=== PATIENT | male | born 1950 | race Caucasian/White ===

== ENCOUNTER 2024-02-29 18:00 | Inpatient (IN) | payer MEDICARE, OTHER ==
[~2024-02-29] VITALS: Ht 165.1 cm; Wt 72.6 kg
[2024-02-29 18:31] LABS: BASOPHILS % (AUTO) 0.1 % (0.0-2.0); HEMATOCRIT 36 % (39-51); HEMOGLOBIN 12.1 g/dL (13.5-17.5); LYMPHOCYTES # (AUTO) 2.5 K/uL (0.8-4.8); MEAN CORPUSCULAR HEMOGLOBIN 32 PG (26.0-33.0); MEAN CORPUSCULAR HGB CONC 34 g/dl (31.0-36.0); MEAN CORPUSCULAR VOLUME 94 fL (80-96); MONOCYTES # (AUTO) 1.4 K/uL (0.1-1.30); MONOCYTES % (AUTO) 6.3 % (2.0-12.0); NEUTROPHILS # (AUTO) 18.9 K/uL (1.8-8.9); NEUTROPHILS % (AUTO) 82.6 % (43.0-81.0); PLATELET COUNT (AUTO) 274 K/uL (150-450); RED BLOOD CELL COUNT(AUTO) 3.78 MIL/uL (4.5-6.0); WHITE BLOOD COUNT (AUTO) 22.9 K/uL (4.3-11.0)
[2024-02-29 18:39] LABS: CALCIUM, SERUM 9.1 mg/dL (8.5-10.1); CARBON DIOXIDE 26 mmol/L (21-32); CHLORIDE 98 mmol/L (98-107); CREATININE 1.3 mg/dL (0.6-1.3); GLUCOSE 116 mg/dL (74-106); POTASSIUM 5.3 mmol/L (3.5-5.1); SODIUM SERUM 130 mmol/L (136-145); UREA NITROGEN, BLOOD 18 mg/dL (7-18)
[2024-02-29] MEDS ORDERED: ACET-868 PO (18:40)
[2024-02-29] MEDS ORDERED: CHOL4PAC2 PO (18:40)
[2024-02-29] MEDS ORDERED: NA P133E RC (18:40)
[2024-02-29] MEDS ORDERED: TACR1CAP2 PO (18:40)
[2024-02-29] MEDS ORDERED: MAGN400O6 PO (18:40)
[2024-02-29] MEDS ORDERED: BISA10SU11 RC (18:40)
[2024-02-29] MEDS ORDERED: TRAM50TA2 PO (18:40)
[2024-02-29] MEDS ORDERED: INSU100V28 SQ (18:40)
[2024-02-29] MEDS ORDERED: TAMS-12 PO (18:40)
[2024-02-29] MEDS ORDERED: ASCO-352 PO (18:40)
[2024-02-29] MEDS ORDERED: MULT-447 PO (18:40)
[2024-02-29] MEDS ORDERED: FOLI0.4T6 PO (18:40)
[2024-02-29] MEDS ORDERED: TRAZ-182 PO (18:40)
[2024-02-29] MEDS ORDERED: INSULIN GLARGINE-YF SQ (18:40)
[2024-02-29] MEDS ORDERED: MELA5TAB PO (18:40)
[2024-02-29] MEDS ORDERED: DEXT15DR6 EACHEYE (18:40)
[2024-02-29] MEDS ORDERED: NUT.237L71 PO (18:40)
[2024-02-29] MEDS ORDERED: SODI100037 PO (18:40)
[2024-02-29] MEDS ORDERED: PRED5TAB PO (18:40)
[2024-02-29] MEDS ORDERED: FINA5TAB11 PO (18:40)
[2024-02-29] MEDS ORDERED: BENA10TA74 PO (18:40)
[2024-02-29] MEDS ORDERED: GABA-532 PO (18:40)
[2024-02-29] MEDS ORDERED: HYDR-4076 PO (18:40)
[2024-02-29 18:46] LABS: ALANINE AMINOTRANSFERASE 17 U/L (12-78); ALBUMIN 3.2 g/dL (3.4-5.0); ALKALINE PHOSPHATASE 90 U/L (46-116); ASPARTATE AMINOTRANSFERASE 15 U/L (15-37); BILIRUBIN,DIRECT 0.2 mg/dL (0.0-0.2); BILIRUBIN,TOTAL 0.5 mg/dL (0.2-1.0); TOTAL PROTEIN, SERUM 7.9 g/dL (6.4-8.2)
[2024-02-29 18:47] LABS: ACETAMINOPHEN <10 ug/ml (10-30); SALICYLATE 0.9 mg/dL (2.8-20.0)
[2024-02-29 18:48] LABS: ALCOHOL, BLOOD < 3 mg/dL (0-10)
[2024-02-29] MEDS ORDERED: ACETAMINOPHEN 650 MG/SUPP.RECT RC ONE (18:48)
[2024-02-29 18:51] LABS: LACTIC ACID 0.9 mmol/L (0.4-2.0)
[2024-02-29] MEDS: ACETAMINOPHEN 650 MG/SUPP.RECT RC ONE (18:51)
[2024-02-29 18:56] LABS: INR 1.24 (0.91-1.10); PARTIAL THROMBOPLASTIN TIME 33.4 SEC (24.3-34.3)
[2024-02-29] MEDS: CEFEPIME 1 GM in IV D5W 50 ML IV ONE (19:30)
[2024-02-29 19:58] LABS: APPEARANCE,URINE CLOUDY (CLEAR); BILIRUBIN,URINE 1+ (NEGATIVE); BLOOD, URINE 3+ Ery/uL (NEGATIVE); COLOR,URINE DARK YELLOW (YELLOW); KETONES,URINE TRACE mg/dL (NEGATIVE); LEUKOCYTE ESTERASE ,URINE 2+ (NEGATIVE); NITRITE, URINE NEGATIVE (NEGATIVE); PH,URINE 5.5 (5.0-8.0); PROTEIN,URINE 2+ mg/dl (NEGATIVE); UGLUCOSE NEGATIVE (NEGATIVE); UROBILINOGEN,URINE 0.2 EU/dL (0.2)
[2024-02-29] MEDS: VANCOMYCIN 1 GM in IV D5W 250 ML IV ONE (20:00)
[2024-02-29] MEDS: IV NS 0.9% 500 ML BAG IV ONE (20:07)
[2024-02-29 20:13] LABS: ADD URINE CULTURE YES; BACTERIA,URINE Moderate /HPF (None Seen); RBC,URINE TOO NUMEROUS TO COUN /HPF (0-2); WBC,URINE TOO NUMEROUS TO COUN /HPF (0-3)
[2024-02-29 20:14] LABS: SQUAMOUS EPITHELIAL CELL,UR Rare /HPF (None Seen)
[2024-02-29] MEDS ORDERED: ONDANSETRON HCL/PF 4 MG/2 ML VIAL IVP PRN (21:30)
[2024-02-29] MEDS: IV NS 0.9% 1,000 ML BAG IV ONE (21:30)
[2024-02-29] MEDS ORDERED: MAG HYDROX/AL HYDROX/SIMETH 30 ML UDC PO PRN (21:30)
[2024-02-29] MEDS ORDERED: ACETAMINOPHEN 650 MG/SUPP.RECT RC PRN (21:30)
[2024-02-29] MEDS ORDERED: MAGNESIUM HYDROXIDE 30 ML UDC PO PRN (21:30)
[2024-02-29] MEDS ORDERED: Medication Not On Formulary EA (Melatonin 10 MG) PO PRN (22:00)
[2024-02-29] MEDS ORDERED: DEXTROSE 50%-WATER 50 ML DISP.SYRIN IV PRN (22:00)
[2024-02-29] MEDS: INSULIN GLARGINE, 100 UNIT/ML CARTRIDGE SQ SCH (22:00)
[2024-02-29] MEDS ORDERED: TRAMADOL HCL 50 MG TABLET PO PRN (22:00)
[2024-02-29] MEDS ORDERED: Calcium Gluconate 0.465 MEQ/ML VIAL IV ONE (22:44)
[2024-02-29] MEDS ORDERED: INSULIN REGULAR, HUMAN 100 UNIT/ML 10 ML VIAL ONE (22:46)
[2024-02-29] MEDS: Calcium Gluconate 0.465 MEQ/ML VIAL IV ONE (22:56)
[2024-02-29] MEDS: DEXTROSE 50%-WATER 50 ML DISP.SYRIN IVP ONE (22:59)
[2024-02-29] MEDS: INSULIN REGULAR, HUMAN 100 UNIT/ML 3 ML VIAL IV ONE (22:59)
[2024-02-29] MEDS: ENOXAPARIN SODIUM 40 MG/0.4 ML DISP.SYRIN SQ SCH (23:15)
[2024-02-29] MEDS: TAMSULOSIN 0.4 MG CAP.SR.24H PO SCH (23:53)
[2024-02-29] MEDS: BLOOD SUGAR DIAGNOSTIC 1 EACH STRIP IN SCH (23:54)
[2024-02-29] MEDS: TRAZODONE 50 MG TABLET PO SCH (23:54)
[2024-03-01] VITALS: BP 134/62; TEMP 99; O2SAT 98
[2024-03-01] MEDS ORDERED: INSULIN GLARGINE, 100 UNIT/ML CARTRIDGE SQ ONE ×2 (00:39→00:41)
[2024-03-01] MEDS: ACETAMINOPHEN 325 MG TABLET PO PRN (02:33)
[2024-03-01 04:00] VITALS: BP 116/55; TEMP 98.2; O2SAT 96
[2024-03-01] MEDS: IV NS 0.9% 1,000 ML IV PRN (04:59)
[2024-03-01 08:00] VITALS: BP 145/60; TEMP 100.4; O2SAT 97
[2024-03-01 08:04] LABS: ALANINE AMINOTRANSFERASE 12 U/L (12-78); ALBUMIN 2.7 g/dL (3.4-5.0); ALKALINE PHOSPHATASE 76 U/L (46-116); ASPARTATE AMINOTRANSFERASE 17 U/L (15-37); BILIRUBIN,DIRECT 0.2 mg/dL (0.0-0.2); BILIRUBIN,TOTAL 0.6 mg/dL (0.2-1.0); CALCIUM, SERUM 8.8 mg/dL (8.5-10.1); CARBON DIOXIDE 20 mmol/L (21-32); CHLORIDE 99 mmol/L (98-107); CREATININE 1.4 mg/dL (0.6-1.3); GLUCOSE 114 mg/dL (74-106); MAGNESIUM 1.6 mg/dL (1.8-2.4); PHOSPHORUS 2.9 mg/dL (2.5-4.9); POTASSIUM 4.7 mmol/L (3.5-5.1); SODIUM SERUM 129 mmol/L (136-145); TOTAL PROTEIN, SERUM 7.1 g/dL (6.4-8.2); UREA NITROGEN, BLOOD 22 mg/dL (7-18)
[2024-03-01 08:18] LABS: BASOPHILS % (AUTO) 0.1 % (0.0-2.0); HEMATOCRIT 34 % (39-51); HEMOGLOBIN 11.4 g/dL (13.5-17.5); LYMPHOCYTES # (AUTO) 1.7 K/uL (0.8-4.8); LYMPHOCYTES % (AUTO) 7.2 % (20.0-44.0); MEAN CORPUSCULAR HEMOGLOBIN 32 PG (26.0-33.0); MEAN CORPUSCULAR HGB CONC 34 g/dl (31.0-36.0); MEAN CORPUSCULAR VOLUME 95 fL (80-96); MONOCYTES # (AUTO) 1.3 K/uL (0.1-1.30); MONOCYTES % (AUTO) 5.5 % (2.0-12.0); NEUTROPHILS # (AUTO) 21.1 K/uL (1.8-8.9); NEUTROPHILS % (AUTO) 87.2 % (43.0-81.0); PLATELET COUNT (AUTO) 244 K/uL (150-450); WHITE BLOOD COUNT (AUTO) 24.2 K/uL (4.3-11.0)
[2024-03-01] MEDS ORDERED: BENAZEPRIL HCL 10 MG TABLET PO SCH (09:00)
[2024-03-01] MEDS ORDERED: FIBER PO SCH (09:00)
[2024-03-01] MEDS ORDERED: CHOLESTYRAMINE PO SCH (09:00)
[2024-03-01] MEDS ORDERED: NUT TX GLUC INTOL LF SOY PO SCH (09:00)
[2024-03-01] MEDS ORDERED: SUCROSE PO SCH (09:00)
[2024-03-01] MEDS ORDERED: [UNRECOGNIZED DRUG - OTHER] PO SCH (09:00)
[2024-03-01] MEDS: CEFEPIME 1 GM in IV D5W 50 ML IV SCH (09:23)
[2024-03-01] MEDS: PANTOPRAZOLE 40 MG VIAL IV SCH (10:12)
[2024-03-01] MEDS: ASCORBIC ACID 500 MG TABLET PO SCH (10:13)
[2024-03-01] MEDS: predniSONE 5 MG TABLET PO SCH (10:13)
[2024-03-01] MEDS: GABAPENTIN 100 MG CAPSULE PO SCH (10:13)
[2024-03-01] MEDS: MULTIVITAMINS,THERAGRAN 1 UDTAB TABLET PO SCH (10:13)
[2024-03-01] MEDS: FOLIC ACID 1 MG TABLET PO SCH (10:13)
[2024-03-01] MEDS: TACROLIMUS ANHYDROUS 0.5 MG CAPSULE PO SCH (10:13)
[2024-03-01] MEDS: FINASTERIDE (5 MG) 5 MG TABLET PO SCH (10:14)
[2024-03-01] MEDS: POLYVINYL ALCOHOL 15 ML BOTTLE EACHEYE PRN (10:14)
[2024-03-01] MEDS: SODIUM CHLORIDE 1000 MG TABLET PO SCH (10:14)
[2024-03-01] MEDS: Z GUARD REMEDY 4 OZ OINT TP PRN (10:15)
[2024-03-01] MEDS: hydrALAZINE HCL 25 MG TABLET PO SCH (10:16)
[2024-03-01] MEDS: MAGNESIUM OXIDE 400 MG TABLET PO ONE (10:17)
[2024-03-01 12:00] VITALS: BP 117/54; O2SAT 97
[2024-03-01] MEDS: INSULIN REGULAR, HUMAN 100 UNIT/ML 3 ML VIAL SQ PRN (12:52)
[2024-03-01 16:00] VITALS: BP 107/55; TEMP 97.5; O2SAT 97
[2024-03-01 16:10] LABS: HEMATOCRIT 32 % (39-51); HEMOGLOBIN 10.8 g/dL (13.5-17.5); LYMPHOCYTES # (AUTO) 1.6 K/uL (0.8-4.8); LYMPHOCYTES % (AUTO) 7.7 % (20.0-44.0); MEAN CORPUSCULAR HEMOGLOBIN 32 PG (26.0-33.0); MEAN CORPUSCULAR HGB CONC 34 g/dl (31.0-36.0); MEAN CORPUSCULAR VOLUME 95 fL (80-96); MONOCYTES # (AUTO) 0.9 K/uL (0.1-1.30); MONOCYTES % (AUTO) 4.3 % (2.0-12.0); NEUTROPHILS # (AUTO) 18.3 K/uL (1.8-8.9); PLATELET COUNT (AUTO) 223 K/uL (150-450); RED BLOOD CELL COUNT(AUTO) 3.34 MIL/uL (4.5-6.0); RED CELL DISTRIBUTION WIDTH 14.7 % (11.5-15.0); WHITE BLOOD COUNT (AUTO) 20.8 K/uL (4.3-11.0)
[2024-03-01 16:22] LABS: INR 1.43 (0.91-1.10); PARTIAL THROMBOPLASTIN TIME 39.9 SEC (24.3-34.3); PROTHROMBIN TIME 14.8 SECS (9.2-11.1)
[2024-03-01 16:24] LABS: CALCIUM, SERUM 8.5 mg/dL (8.5-10.1); CARBON DIOXIDE 22 mmol/L (21-32); CHLORIDE 98 mmol/L (98-107); CREATININE 1.5 mg/dL (0.6-1.3); GLUCOSE 220 mg/dL (74-106); POTASSIUM 4.8 mmol/L (3.5-5.1); SODIUM SERUM 127 mmol/L (136-145); UREA NITROGEN, BLOOD 26 mg/dL (7-18)
[2024-03-01 20:00] VITALS: BP 95/57; TEMP 97.8; O2SAT 98
[2024-03-02] VITALS: BP 152/63; TEMP 97.9; O2SAT 96
[2024-03-02 04:58] VITALS: BP 131/58; TEMP 98.1; O2SAT 96
[2024-03-02 07:00] VITALS: BP 113/65; TEMP 98.1; O2SAT 98
[2024-03-02 16:00] VITALS: BP 149/72; TEMP 98.2; O2SAT 98
[2024-03-02 20:00] VITALS: BP 136/66; TEMP 98.4; O2SAT 100
[2024-03-03] VITALS: BP_SYST 137; BP_SYST 157; BP_DIAS 71; TEMP 98.2; O2SAT 100; O2SAT 98
[2024-03-03 04:00] VITALS: BP 157/71; TEMP 97.7; O2SAT 100
[2024-03-03 07:00] VITALS: BP 160/69; TEMP 97.5; O2SAT 100
[2024-03-03] MEDS: PANTOPRAZOLE 40 MG TABLET.DR PO SCH (08:48)
[2024-03-03] MEDS: hydrALAZINE HCL 25 MG TABLET PO SCH (08:52)
[2024-03-03 09:30] VITALS: BP 140/73; O2SAT 100
[2024-03-03] MEDS: POLYETHYLENE GLYCOL 3350 17 GM POWD.PACK PO ONE ×2 (10:30→19:17)
[2024-03-03 11:02] LABS: BASOPHILS % (AUTO) 0.2 % (0.0-2.0); EOSINOPHILS % (AUTO) 0.6 % (0.0-6.0); HEMATOCRIT 33 % (39-51); HEMOGLOBIN 10.8 g/dL (13.5-17.5); LYMPHOCYTES # (AUTO) 1.8 K/uL (0.8-4.8); MEAN CORPUSCULAR HEMOGLOBIN 32 PG (26.0-33.0); MEAN CORPUSCULAR HGB CONC 33 g/dl (31.0-36.0); MEAN CORPUSCULAR VOLUME 95 fL (80-96); MONOCYTES # (AUTO) 0.5 K/uL (0.1-1.30); NEUTROPHILS # (AUTO) 6.1 K/uL (1.8-8.9); NEUTROPHILS % (AUTO) 72.2 % (43.0-81.0); PLATELET COUNT (AUTO) 187 K/uL (150-450); RED BLOOD CELL COUNT(AUTO) 3.41 MIL/uL (4.5-6.0); RED CELL DISTRIBUTION WIDTH 14.5 % (11.5-15.0); WHITE BLOOD COUNT (AUTO) 8.5 K/uL (4.3-11.0)
[2024-03-03 11:54] LABS: CALCIUM, SERUM 8.3 mg/dL (8.5-10.1); MAGNESIUM 1.6 mg/dL (1.8-2.4); PHOSPHORUS 1.7 mg/dL (2.5-4.9); POTASSIUM 4.7 mmol/L (3.5-5.1)
[2024-03-03] MEDS: MAGNESIUM OXIDE 400 MG TABLET PO ONE (13:05)
[2024-03-03 16:00] VITALS: BP 153/72; TEMP 97.7; O2SAT 98
[2024-03-03] MEDS: K PHOS NEUTRAL 250 MG TABLET PO ONE (17:54)
[2024-03-03 20:00] VITALS: BP 90/65; TEMP 97.7; O2SAT 98
[2024-03-04] VITALS: BP 141/64; TEMP 97.7; O2SAT 100
[2024-03-04 04:00] VITALS: BP 105/65; TEMP 97.5; O2SAT 100
[2024-03-04 08:00] VITALS: BP 120/61; TEMP 97.7; O2SAT 100
[2024-03-04] MEDS: GLUCERNA SHAKE 237 ML CAN PO SCH (08:34)
[2024-03-04] MEDS: PROSOURCE / PROSTAT (PYXIS) 30 ML UDC PO SCH (09:09)
[2024-03-04 10:26] LABS: CREATININE 0.8 mg/dL (0.6-1.3); MAGNESIUM 1.8 mg/dL (1.8-2.4); PHOSPHORUS 2.1 mg/dL (2.5-4.9); POTASSIUM 5.4 mmol/L (3.5-5.1)
[2024-03-04] MEDS ORDERED: BISACODYL SUPP (10 MG) 10 MG/SUPP.RECT SUPP.RECT RC PRN (10:30)
[2024-03-04] MEDS: POLYETHYLENE GLYCOL 3350 17 GM POWD.PACK PO ONE (10:48)
[2024-03-04 12:00] VITALS: BP 98/70; TEMP 97.7; O2SAT 98
[2024-03-04 16:00] VITALS: BP 123/40; TEMP 97.6
[2024-03-04] MEDS: K PHOS NEUTRAL 250 MG TABLET PO ONE (17:01)
[2024-03-04 20:00] VITALS: BP 106/62; TEMP 97.7; O2SAT 98
[2024-03-04 22:42] LABS: URINE SODIUM, RANDOM 95 mmol/l (40-220)
[2024-03-04] MEDS ORDERED: DOXYCYCLINE 100 MG VIAL ONE (22:57)
[2024-03-04] MEDS: DOXYCYCLINE 100 MG in IV D5W 100 ML IV SCH (23:12)
[2024-03-05] VITALS: BP 121/61; TEMP 97.3; O2SAT 100
[2024-03-05 04:00] VITALS: BP 144/55; TEMP 97.7; O2SAT 100
[2024-03-05 08:17] VITALS: BP 128/60; TEMP 97.5; O2SAT 99
[2024-03-05 09:58] LABS: BASOPHILS % (AUTO) 0.2 % (0.0-2.0); EOSINOPHILS # (AUTO) 0.1 K/uL (0.0-0.7); HEMATOCRIT 34 % (39-51); HEMOGLOBIN 11.3 g/dL (13.5-17.5); LYMPHOCYTES # (AUTO) 1.6 K/uL (0.8-4.8); LYMPHOCYTES % (AUTO) 27.2 % (20.0-44.0); MEAN CORPUSCULAR HEMOGLOBIN 32 PG (26.0-33.0); MEAN CORPUSCULAR HGB CONC 34 g/dl (31.0-36.0); MEAN CORPUSCULAR VOLUME 95 fL (80-96); MONOCYTES # (AUTO) 0.4 K/uL (0.1-1.30); MONOCYTES % (AUTO) 6.7 % (2.0-12.0); NEUTROPHILS # (AUTO) 3.9 K/uL (1.8-8.9); NEUTROPHILS % (AUTO) 64.9 % (43.0-81.0); PLATELET COUNT (AUTO) 182 K/uL (150-450); RED BLOOD CELL COUNT(AUTO) 3.54 MIL/uL (4.5-6.0); RED CELL DISTRIBUTION WIDTH 13.9 % (11.5-15.0); WHITE BLOOD COUNT (AUTO) 6.1 K/uL (4.3-11.0)
[2024-03-05 10:20] LABS: CALCIUM, SERUM 8.3 mg/dL (8.5-10.1); CREATININE 0.9 mg/dL (0.6-1.3); POTASSIUM 5.3 mmol/L (3.5-5.1)
[2024-03-05] MEDS: SODIUM ZIRCONIUM CYCLOSILICATE 10 GM POWD.PACK PO SCH (12:15)
[2024-03-05 16:19] VITALS: BP 125/60; TEMP 98.2; O2SAT 97
[2024-03-05 18:43] LABS: OSMOLALITY,URINE 404 mOS/kg (340-1090)
[2024-03-05 20:00] VITALS: BP 127/66; TEMP 98.2; O2SAT 98
[2024-03-05] MEDS: INSULIN GLARGINE, 100 UNIT/ML CARTRIDGE SQ SCH (22:42)
[2024-03-06 08:00] VITALS: BP 133/57; TEMP 97.7; O2SAT 100
[2024-03-06 09:09] LABS: CALCIUM, SERUM 8.2 mg/dL (8.5-10.1); CREATININE 0.8 mg/dL (0.6-1.3)
[2024-03-06 16:00] VITALS: BP 121/69; TEMP 97.7; O2SAT 99
[2024-03-06 17:00] VITALS: BP 121/69
== END 2024-03-06 18:29 | DRG 698 ==
LOC: ER 18:08 → TELE 21:37 → MED 03-05 12:12
PROVIDERS: ADMIT Nurse Practitioner Family; ATTEND Internal Medicine
DX: T83.511A Infection and inflammatory reaction due to indwelling urethral catheter, initial encounter (principal); A41.9 Sepsis, unspecified organism; G93.41 Metabolic encephalopathy; R65.20 Severe sepsis without septic shock; D68.59 Other primary thrombophilia; E87.1 Hypo-osmolality and hyponatremia; E46 Unspecified protein-calorie malnutrition; N17.9 Acute kidney failure, unspecified; T86.12 Kidney transplant failure; Y73.8 Miscellaneous gastroenterology and urology devices associated with adverse incidents, not elsewhere classified; Y84.6 Urinary catheterization as the cause of abnormal reaction of the patient, or of later complication, without mention of misadventure at the time of the procedure; N39.0 Urinary tract infection, site not specified; E88.09 Other disorders of plasma-protein metabolism, not elsewhere classified; Y83.0 Surgical operation with transplant of whole organ as the cause of abnormal reaction of the patient, or of later complication, without mention of misadventure at the time of the procedure; N18.9 Chronic kidney disease, unspecified; E11.40 Type 2 diabetes mellitus with diabetic neuropathy, unspecified; Z79.60 Long term (current) use of unspecified immunomodulators and immunosuppressants; E87.5 Hyperkalemia; Z79.4 Long term (current) use of insulin; D63.1 Anemia in chronic kidney disease; Y83.8 Other surgical procedures as the cause of abnormal reaction of the patient, or of later complication, without mention of misadventure at the time of the procedure; I12.9 Hypertensive chronic kidney disease with stage 1 through stage 4 chronic kidney disease, or unspecified chronic kidney disease; E11.22 Type 2 diabetes mellitus with diabetic chronic kidney disease; N40.1 Benign prostatic hyperplasia with lower urinary tract symptoms; L89.626 Pressure-induced deep tissue damage of left heel; L89.616 Pressure-induced deep tissue damage of right heel; Z89.422 Acquired absence of other left toe(s); Z89.421 Acquired absence of other right toe(s); B96.89 Other specified bacterial agents as the cause of diseases classified elsewhere; E11.65 Type 2 diabetes mellitus with hyperglycemia; S00.12XA Contusion of left eyelid and periocular area, initial encounter; X58.XXXA Exposure to other specified factors, initial encounter; Y93.9 Activity, unspecified; Y92.129 Unspecified place in nursing home as the place of occurrence of the external cause
CPT/HCPCS: 36415; 70450-TC; 70486-TC; 71045-TC; 76770-TC; 80048-TC; 80076-TC; 81001; 82140-TC; 82962-TC; 83605-TC; 83735-TC; 83935-TC; 84100-TC; 84300-TC; 84443-TC; 84484-TC; 85025-TC; 85730-TC; 86850-TC; 87040-TC; 87081-TC; 87086-TC; 93307-TC; 93971-TC; 97110-TC; 97116-TC; 97530-TC; A4223; A6253; G0378; G0480; J0612; J0692; J1650; J1815; J2470; J3370; J3490; J7030; J7060; J7507; J7512

== ENCOUNTER 2024-03-25 01:27 | Inpatient (IN) | payer MEDICARE, OTHER ==
[~2024-03-25] VITALS: Ht 172.7 cm; Wt 77.6 kg
[~2024-03-25 01:27] MED LIST: ACET-868 PO; ASCO-352 PO; BENA10TA74 PO; BISA10SU11 RC; CHOL4PAC2 PO; DEXT15DR6 EACHEYE; FINA5TAB11 PO; FOLI0.4T6 PO; GABA-532 PO; HYDR-4076 PO; INSU100V28 SQ; INSULIN GLARGINE-YF SQ; MAGN400O6 PO; MELA5TAB PO; MULT-447 PO; NA P133E RC; NUT.237L71 PO; PRED5TAB PO; SODI100037 PO; TACR1CAP2 PO; TAMS-12 PO; TRAM50TA2 PO; TRAZ-182 PO
[2024-03-25 02:26] LABS: BASOPHILS % (AUTO) 0.3 % (0.0-2.0); HEMATOCRIT 36 % (39-51); HEMOGLOBIN 12.4 g/dL (13.5-17.5); LYMPHOCYTES # (AUTO) 1.1 K/uL (0.8-4.8); LYMPHOCYTES % (AUTO) 7.7 % (20.0-44.0); MEAN CORPUSCULAR HEMOGLOBIN 32 PG (26.0-33.0); MEAN CORPUSCULAR HGB CONC 35 g/dl (31.0-36.0); MEAN CORPUSCULAR VOLUME 93 fL (80-96); MONOCYTES # (AUTO) 0.9 K/uL (0.1-1.30); MONOCYTES % (AUTO) 6.7 % (2.0-12.0); NEUTROPHILS # (AUTO) 11.8 K/uL (1.8-8.9); NEUTROPHILS % (AUTO) 85.3 % (43.0-81.0); PLATELET COUNT (AUTO) 140 K/uL (150-450); RED BLOOD CELL COUNT(AUTO) 3.87 MIL/uL (4.5-6.0); RED CELL DISTRIBUTION WIDTH 15.3 % (11.5-15.0); WHITE BLOOD COUNT (AUTO) 13.8 K/uL (4.3-11.0)
[2024-03-25 02:34] LABS: CALCIUM, SERUM 8.6 mg/dL (8.5-10.1); CREATININE 1.2 mg/dL (0.6-1.3); POTASSIUM 4.5 mmol/L (3.5-5.1)
[2024-03-25 02:42] LABS: LACTIC ACID 1.1 mmol/L (0.4-2.0)
[2024-03-25 02:47] LABS: ALBUMIN 3.3 g/dL (3.4-5.0); BILIRUBIN,TOTAL 0.6 mg/dL (0.2-1.0); TOTAL PROTEIN, SERUM 7.2 g/dL (6.4-8.2)
[2024-03-25] MEDS ORDERED: CEFTRIAXONE 1GM BAG (ER ONLY) 50 ML IV ONE (02:53)
[2024-03-25] MEDS: IV NS 0.9% 1,000 ML IV ONE (02:59)
[2024-03-25] MEDS: CEFTRIAXONE 1GM BAG (ER ONLY) 1 GM/50 ML PIGGYBACK IV ONE (02:59)
[2024-03-25 05:57] LABS: APPEARANCE,URINE TURBID (CLEAR); BILIRUBIN,URINE NEGATIVE (NEGATIVE); BLOOD, URINE 2+ Ery/uL (NEGATIVE); COLOR,URINE DARK YELLOW (YELLOW); KETONES,URINE NEGATIVE (NEGATIVE); LEUKOCYTE ESTERASE ,URINE 2+ (NEGATIVE); NITRITE, URINE NEGATIVE (NEGATIVE); PH,URINE 6.5 (5.0-8.0); PROTEIN,URINE 3+ mg/dl (NEGATIVE); UGLUCOSE NEGATIVE (NEGATIVE)
[2024-03-25] MEDS ORDERED: ONDANSETRON HCL/PF 4 MG/2 ML VIAL IVP PRN (06:00)
[2024-03-25] MEDS ORDERED: Z GUARD REMEDY 4 OZ OINT TP PRN (06:00)
[2024-03-25] MEDS ORDERED: DEXTROSE 50%-WATER 50 ML DISP.SYRIN IV PRN ×2 (06:00→13:00)
[2024-03-25 06:17] LABS: ADD URINE CULTURE YES; BACTERIA,URINE Moderate /HPF (None Seen); RBC,URINE 51-80 /HPF (0-2); SQUAMOUS EPITHELIAL CELL,UR Few /HPF (None Seen); WBC,URINE 21-50 /HPF (0-3)
[2024-03-25] MEDS: BLOOD SUGAR DIAGNOSTIC 1 EACH STRIP IN SCH ×2 (07:56→17:34)
[2024-03-25] MEDS ORDERED: ENOX40DI SQ (08:42)
[2024-03-25] MEDS ORDERED: PANT40TA2 PO (08:42)
[2024-03-25] MEDS ORDERED: INSU100V7 SQ (08:42)
[2024-03-25] MEDS ORDERED: AMIN30LI2 PO (08:42)
[2024-03-25] MEDS ORDERED: POLY17PO4 PO (08:42)
[2024-03-25] MEDS ORDERED: MELA3TAB41 PO (08:42)
[2024-03-25] MEDS ORDERED: SODI10PO PO (08:42)
[2024-03-25] MEDS ORDERED: DEXT15DR23 EACHEYE (08:42)
[2024-03-25] MEDS: PANTOPRAZOLE 40 MG TABLET.DR PO SCH (10:16)
[2024-03-25] MEDS: ENOXAPARIN SODIUM 40 MG/0.4 ML DISP.SYRIN SQ SCH (10:20)
[2024-03-25] MEDS: ACETAMINOPHEN 325 MG TABLET PO PRN (11:55)
[2024-03-25] MEDS: predniSONE 5 MG TABLET PO SCH (11:56)
[2024-03-25] MEDS: INSULIN REGULAR, HUMAN 100 UNIT/ML 3 ML VIAL SQ PRN (12:37)
[2024-03-25] MEDS ORDERED: Medication Not On Formulary EA (Melatonin 6 MG) PO PRN (13:00)
[2024-03-25 13:12] VITALS: BP 126/58; TEMP 99.1
[2024-03-25] MEDS: GABAPENTIN 100 MG CAPSULE PO SCH (14:29)
[2024-03-25] MEDS: hydrALAZINE HCL 25 MG TABLET PO SCH (14:30)
[2024-03-25] MEDS: SODIUM CHLORIDE 1000 MG TABLET PO SCH (14:30)
[2024-03-25] MEDS: CEFEPIME 2 GM in IV D5W 100 ML IV SCH (14:57)
[2024-03-25 16:00] VITALS: BP 134/69; TEMP 99.1
[2024-03-25] MEDS: TACROLIMUS ANHYDROUS 0.5 MG CAPSULE PO SCH (16:43)
[2024-03-25] MEDS: PROSOURCE / PROSTAT (PYXIS) 30 ML UDC PO SCH (16:45)
[2024-03-25 20:00] VITALS: BP 121/63; TEMP 98.3; O2SAT 98
[2024-03-25] MEDS ORDERED: CEFEPIME 1 GM in IV D5W 50 ML IV SCH (21:00)
[2024-03-25] MEDS: TAMSULOSIN 0.4 MG CAP.SR.24H PO SCH (21:34)
[2024-03-25] MEDS: TRAZODONE 50 MG TABLET PO SCH (21:34)
[2024-03-25] MEDS: INSULIN GLARGINE, 100 UNIT/ML CARTRIDGE SQ SCH (21:52)
[2024-03-26] VITALS: BP 122/62; TEMP 98.2; O2SAT 98
[2024-03-26 04:00] VITALS: BP 120/62; TEMP 98.4; O2SAT 98
[2024-03-26 07:09] LABS: URINE TOTAL PROTEIN 167.1 mg/dL (0-11.9)
[2024-03-26 07:24] LABS: BASOPHILS % (AUTO) 0.2 % (0.0-2.0); HEMATOCRIT 33 % (39-51); HEMOGLOBIN 11.3 g/dL (13.5-17.5); LYMPHOCYTES # (AUTO) 1.6 K/uL (0.8-4.8); MEAN CORPUSCULAR HEMOGLOBIN 33 PG (26.0-33.0); MEAN CORPUSCULAR HGB CONC 34 g/dl (31.0-36.0); MEAN CORPUSCULAR VOLUME 95 fL (80-96); MONOCYTES # (AUTO) 0.5 K/uL (0.1-1.30); MONOCYTES % (AUTO) 5.6 % (2.0-12.0); NEUTROPHILS # (AUTO) 7.2 K/uL (1.8-8.9); NEUTROPHILS % (AUTO) 77.2 % (43.0-81.0); PLATELET COUNT (AUTO) 113 K/uL (150-450); RED BLOOD CELL COUNT(AUTO) 3.43 MIL/uL (4.5-6.0); RED CELL DISTRIBUTION WIDTH 15.5 % (11.5-15.0); WHITE BLOOD COUNT (AUTO) 9.3 K/uL (4.3-11.0)
[2024-03-26 08:00] VITALS: BP 98/54; TEMP 98.2; O2SAT 99
[2024-03-26 08:31] LABS: CALCIUM, SERUM 7.9 mg/dL (8.5-10.1); CREATININE 1.4 mg/dL (0.6-1.3); MAGNESIUM 1.8 mg/dL (1.8-2.4); PHOSPHORUS 4.1 mg/dL (2.5-4.9); POTASSIUM 4.4 mmol/L (3.5-5.1)
[2024-03-26] MEDS ORDERED: ENOXAPARIN SODIUM 40 MG/0.4 ML DISP.SYRIN SQ SCH (09:00)
[2024-03-26] MEDS: ASCORBIC ACID 500 MG TABLET PO SCH (09:09)
[2024-03-26] MEDS: FINASTERIDE (5 MG) 5 MG TABLET PO SCH (09:09)
[2024-03-26] MEDS: POLYETHYLENE GLYCOL 3350 17 GM POWD.PACK PO SCH (09:09)
[2024-03-26] MEDS: FOLIC ACID 1 MG TABLET PO SCH (09:10)
[2024-03-26] MEDS: PANTOPRAZOLE 40 MG TABLET.DR PO SCH (09:10)
[2024-03-26] MEDS: MULTIVIT W/MINERALS 1 TAB TABLET PO SCH (09:10)
[2024-03-26 12:00] VITALS: O2SAT 94
[2024-03-26 16:00] VITALS: BP 120/60; TEMP 97.7; O2SAT 100
[2024-03-26 20:00] VITALS: BP 129/54; TEMP 97.3; O2SAT 100
[2024-03-26] MEDS: INSULIN REGULAR, HUMAN 100 UNIT/ML 3 ML VIAL SQ PRN (22:11)
[2024-03-27] VITALS: BP 151/68; TEMP 98; O2SAT 100
[2024-03-27 04:00] VITALS: BP 138/61; TEMP 98.4; O2SAT 98
[2024-03-27 08:00] VITALS: BP 147/68; TEMP 97.7; O2SAT 95
[2024-03-27 08:10] LABS: BASOPHILS % (AUTO) 0.1 % (0.0-2.0); EOSINOPHILS % (AUTO) 0.4 % (0.0-6.0); HEMATOCRIT 32 % (39-51); LYMPHOCYTES # (AUTO) 1.7 K/uL (0.8-4.8); LYMPHOCYTES % (AUTO) 25.7 % (20.0-44.0); MEAN CORPUSCULAR HEMOGLOBIN 33 PG (26.0-33.0); MEAN CORPUSCULAR HGB CONC 35 g/dl (31.0-36.0); MEAN CORPUSCULAR VOLUME 94 fL (80-96); MONOCYTES # (AUTO) 0.5 K/uL (0.1-1.30); NEUTROPHILS # (AUTO) 4.3 K/uL (1.8-8.9); NEUTROPHILS % (AUTO) 65.8 % (43.0-81.0); PLATELET COUNT (AUTO) 117 K/uL (150-450); RED BLOOD CELL COUNT(AUTO) 3.34 MIL/uL (4.5-6.0); WHITE BLOOD COUNT (AUTO) 6.5 K/uL (4.3-11.0)
[2024-03-27 08:15] LABS: CALCIUM, SERUM 8.5 mg/dL (8.5-10.1); POTASSIUM 4.3 mmol/L (3.5-5.1)
[2024-03-27] MEDS: TRAMADOL HCL 50 MG TABLET PO PRN (09:24)
[2024-03-27] MEDS: POLYVINYL ALCOHOL 15 ML BOTTLE EACHEYE PRN (09:46)
[2024-03-27 12:00] VITALS: BP 145/67; TEMP 98.2; O2SAT 98
[2024-03-27 16:00] VITALS: BP 104/74; TEMP 97.9; O2SAT 98
[2024-03-27 20:00] VITALS: BP 158/70; TEMP 97.5; O2SAT 99
[2024-03-27] MEDS: TEMAZEPAM 7.5 MG CAPSULE PO PRN (21:31)
[2024-03-28] VITALS: BP 166/73; TEMP 97.9; O2SAT 98
[2024-03-28 04:00] VITALS: BP 161/74; TEMP 97.9; O2SAT 97
[2024-03-28 07:27] LABS: BASOPHILS % (AUTO) 0.1 % (0.0-2.0); EOSINOPHILS # (AUTO) 0.1 K/uL (0.0-0.7); EOSINOPHILS % (AUTO) 1.1 % (0.0-6.0); HEMATOCRIT 33 % (39-51); HEMOGLOBIN 11.2 g/dL (13.5-17.5); LYMPHOCYTES % (AUTO) 36.8 % (20.0-44.0); MEAN CORPUSCULAR HEMOGLOBIN 32 PG (26.0-33.0); MEAN CORPUSCULAR HGB CONC 34 g/dl (31.0-36.0); MEAN CORPUSCULAR VOLUME 94 fL (80-96); MONOCYTES # (AUTO) 0.5 K/uL (0.1-1.30); MONOCYTES % (AUTO) 8.3 % (2.0-12.0); NEUTROPHILS % (AUTO) 53.7 % (43.0-81.0); PLATELET COUNT (AUTO) 126 K/uL (150-450); RED BLOOD CELL COUNT(AUTO) 3.48 MIL/uL (4.5-6.0); WHITE BLOOD COUNT (AUTO) 5.5 K/uL (4.3-11.0)
[2024-03-28 08:00] VITALS: BP 160/77; TEMP 97.5; O2SAT 99
[2024-03-28 08:05] LABS: CALCIUM, SERUM 8.3 mg/dL (8.5-10.1); POTASSIUM 4.3 mmol/L (3.5-5.1)
[2024-03-28] MEDS: NITROGLYCERIN PACKET 1 GM PACKET TOP SCH (08:17)
[2024-03-28 12:00] VITALS: BP 153/83; O2SAT 99
[2024-03-28] MEDS: CEFEPIME 2 GM in IV D5W 100 ML IV SCH (12:09)
[2024-03-28 16:00] VITALS: BP 136/69; TEMP 97.5; O2SAT 97
[2024-03-28] MEDS: LORAZEPAM 0.5 MG TABLET PO PRN (16:09)
[2024-03-28 16:35] LABS: URINE SODIUM, RANDOM 58 mmol/l (40-220)
[2024-03-28 17:27] LABS: APPEARANCE,URINE CLEAR (CLEAR); BILIRUBIN,URINE NEGATIVE (NEGATIVE); BLOOD, URINE NEGATIVE Ery/uL (NEGATIVE); COLOR,URINE YELLOW (YELLOW); KETONES,URINE NEGATIVE (NEGATIVE); LEUKOCYTE ESTERASE ,URINE 1+ (NEGATIVE); NITRITE, URINE NEGATIVE (NEGATIVE); PH,URINE 6.5 (5.0-8.0); PROTEIN,URINE TRACE mg/dl (NEGATIVE); UGLUCOSE 1+ mg/dL (NEGATIVE); UROBILINOGEN,URINE 0.2 EU/dL (0.2)
[2024-03-28 18:59] LABS: ADD URINE CULTURE YES; BACTERIA,URINE Few /HPF (None Seen); SQUAMOUS EPITHELIAL CELL,UR Few /HPF (None Seen)
[2024-03-28 19:00] LABS: RBC,URINE 0-2 /HPF (0-2); YEAST,URINE Rare /HPF (None Seen)
[2024-03-28 20:00] VITALS: BP 149/72; TEMP 98.1; O2SAT 97
[2024-03-29 04:00] VITALS: BP 144/72; TEMP 97.9; O2SAT 98
[2024-03-29 08:00] VITALS: BP 142/75; TEMP 97.9; O2SAT 98
[2024-03-29 16:00] VITALS: BP 103/60; TEMP 97.3; O2SAT 98
[2024-03-29 16:58] LABS: OSMOLALITY,URINE 394 mOS/kg (340-1090)
[2024-03-29 20:18] VITALS: BP 135/88; TEMP 98.4; O2SAT 93
[2024-03-30 04:53] VITALS: BP 105/74; TEMP 97.9; O2SAT 100
[2024-03-30 07:31] LABS: CALCIUM, SERUM 8.6 mg/dL (8.5-10.1); CREATININE 0.9 mg/dL (0.6-1.3); POTASSIUM 4.7 mmol/L (3.5-5.1)
[2024-03-30 08:00] VITALS: BP 111/63; TEMP 97.8; O2SAT 100
[2024-03-30 08:40] LABS: BASOPHILS % (AUTO) 0.3 % (0.0-2.0); EOSINOPHILS # (AUTO) 0.2 K/uL (0.0-0.7); EOSINOPHILS % (AUTO) 2.1 % (0.0-6.0); HEMATOCRIT 33 % (39-51); HEMOGLOBIN 11.4 g/dL (13.5-17.5); LYMPHOCYTES # (AUTO) 2.3 K/uL (0.8-4.8); LYMPHOCYTES % (AUTO) 26.4 % (20.0-44.0); MEAN CORPUSCULAR HEMOGLOBIN 32 PG (26.0-33.0); MEAN CORPUSCULAR HGB CONC 34 g/dl (31.0-36.0); MEAN CORPUSCULAR VOLUME 94 fL (80-96); MONOCYTES # (AUTO) 0.8 K/uL (0.1-1.30); MONOCYTES % (AUTO) 8.7 % (2.0-12.0); NEUTROPHILS # (AUTO) 5.5 K/uL (1.8-8.9); NEUTROPHILS % (AUTO) 62.5 % (43.0-81.0); PLATELET COUNT (AUTO) 164 K/uL (150-450); RED BLOOD CELL COUNT(AUTO) 3.55 MIL/uL (4.5-6.0); RED CELL DISTRIBUTION WIDTH 14.7 % (11.5-15.0); WHITE BLOOD COUNT (AUTO) 8.8 K/uL (4.3-11.0)
[2024-03-30] MEDS ORDERED: CEFD300C3 PO (12:03)
[2024-03-30 16:00] VITALS: BP 141/66; TEMP 97.5; O2SAT 98
[2024-03-30 16:31] VITALS: BP 141/66
== END 2024-03-30 17:20 | disposition home health service (06) | DRG 193 ==
LOC: ER 01:29 → TELE1 06:00 → MEDSG1 03-26 09:53 → TELE1 03-27 00:50 → MEDSG1 03-28 10:48
PROVIDERS: ADMIT Nurse Practitioner Family; ATTEND Nurse Practitioner Family
DX: J15.9 Unspecified bacterial pneumonia (principal); G93.41 Metabolic encephalopathy; D68.59 Other primary thrombophilia; E44.1 Mild protein-calorie malnutrition; E87.1 Hypo-osmolality and hyponatremia; T86.12 Kidney transplant failure; N17.9 Acute kidney failure, unspecified; N39.0 Urinary tract infection, site not specified; I12.9 Hypertensive chronic kidney disease with stage 1 through stage 4 chronic kidney disease, or unspecified chronic kidney disease; I25.10 Atherosclerotic heart disease of native coronary artery without angina pectoris; N18.9 Chronic kidney disease, unspecified; D63.8 Anemia in other chronic diseases classified elsewhere; E88.09 Other disorders of plasma-protein metabolism, not elsewhere classified; Z79.899 Other long term (current) drug therapy; E11.65 Type 2 diabetes mellitus with hyperglycemia; E86.9 Volume depletion, unspecified; E11.22 Type 2 diabetes mellitus with diabetic chronic kidney disease; Z79.4 Long term (current) use of insulin; Z68.26 Body mass index [BMI] 26.0-26.9, adult; Y92.129 Unspecified place in nursing home as the place of occurrence of the external cause; Z79.621 Long term (current) use of calcineurin inhibitor; E11.40 Type 2 diabetes mellitus with diabetic neuropathy, unspecified; L89.626 Pressure-induced deep tissue damage of left heel; L89.616 Pressure-induced deep tissue damage of right heel; Z89.422 Acquired absence of other left toe(s); Y83.0 Surgical operation with transplant of whole organ as the cause of abnormal reaction of the patient, or of later complication, without mention of misadventure at the time of the procedure; Z89.421 Acquired absence of other right toe(s); B96.89 Other specified bacterial agents as the cause of diseases classified elsewhere; K81.9 Cholecystitis, unspecified
CPT/HCPCS: 36415; 70450-TC; 71045-TC; 76705-TC; 76770-TC; 80048-TC; 80053-TC; 81001; 82570-TC; 82962-TC; 83605-TC; 83690-TC; 83735-TC; 83880; 83935-TC; 84100-TC; 84300-TC; 84484-TC; 85025-TC; 87040-TC; 87081-TC; A4223; G0378; J0692; J0696; J1650; J1815; J3490; J7050; J7060; J7507; J7512